=== PATIENT | male | born 1995 | race Caucasian/White ===

== ENCOUNTER 2016-11-28 12:31 | Emergency (ER) ==
[2016-11-28 12:45] VITALS: BP 148/107; TEMP 96.4; BMI 35.8
--- NOTE | 2016-11-28 12:58 | ED.PDOC ---
General ED Provider: Dr. JOANIE SMITH Chief Complaint: Abdominal Pain Stated Complaint: Patient is a 20 year old who c/o Abdominal pain. Diarrhea x 4 , Vomting x 3 over the last 24 hours. with low grade fever rates pain at 7/10, took Imodium Time Seen by Physician: 12:58 Mode of Arrival: Walk-In Information Source: Patient Exam Limitations: No limitations Nursing and Triage Documentation Reviewed and Agree: Yes GI Complaint Exam - Vomiting/Diarrhea Complaint/Exam Onset/Duration: 2 day Episodes of Vomiting over last 24 Hours: 3 Episodes of Diarrhea Over Last 24 Hours: 4 Initial Severity: Moderate Current Severity: Mild Character of Vomiting: Reports: Non-bilious Character of Diarrhea: Reports: Watery Aggravating: Reports: Food Alleviating: Reports: Clear liquids Associated Signs and Symptoms: Denies: Dizziness, Light-headedness, Melena, Hematemesis, Fever, Abdominal pain, Cramping Last Oral Intake: Prior to arrival Last Bowel Movement: toay Non-GI Risk Factors: Reports: None Surgical Obstruction Risk Factors: Reports: None Related Surgical History: Reports: None Abdominal Findings: Present: None Kussmaul Respirations Present: No Differential Diagnoses: Viral Gastroenteritis Review of Systems - Review Of Systems Constitutional: Reports: No symptoms Eyes: Reports: No symptoms Ears, Nose, Mouth, Throat: Reports: No symptoms Respiratory: Reports: No symptoms Cardiac: Reports: No symptoms GI: Reports: Abdominal pain, Diarrhea, Nausea, Vomiting : Reports: No symptoms Musculoskeletal: Reports: No symptoms Skin: Reports: No symptoms Neurological: Reports: No symptoms Endocrine: Reports: No symptoms Hematologic/Lymphatic: Reports: No symptoms All Other Systems: Reviewed and Negative Past Medical History - Past Medical History Previously Healthy: Yes Endocrine: Reports: None Cardiovascular: Reports: None Respiratory: Reports: None Hematological: Reports: None Gastrointestinal: Reports: None Genitourinary: Reports: None Neuro/Psych: Reports: None Musculoskeletal: Reports: None Cancer: Reports: None - Surgical History General Surgical History: Reports: Unknown - Family History Family History: Reports: Unknown - Social History Smoking Status: Current every day smoker, Light tobacco smoker Hx Substance Use: No Alcohol Screening: None - Immunizations Tetanus Shot up to Date: Yes Physical Exam - Physical Exam Appearance: Ill-appearing, Obese Ill-appearing: Mild Neck: Supple Respiratory: Airway patent, Breath sounds clear, Breath sounds equal, Respirations nonlabored Cardiovascular: RRR, Pulses normal, No rub, No murmur GI/: Soft, Tender Musculoskeletal: Normal strength, ROM intact, No edema, No calf tenderness Skin: Warm, Dry, Normal color Neurological: Sensation intact, Motor intact, Reflexes intact, Cranial nerves intact, Alert, Oriented Psychiatric: Anxious Critical Care Note - Critical Care Note Total Time (mins): 0 Course - Course Vital Signs: Temp Pulse Resp BP Pulse Ox 11/28/16 12:34 96.4 F L 76 16 148/107 H 96 Departure - Departure Time of Disposition: 13:39 Disposition: AMA Discharge Problem: Gastroenteritis Condition: Stable Pt referred to PMD for follow-up: No (left AMA ) Allergies/Adverse Reactions: Allergies venom-wasp [Wasp Venom] Allergy (Severe, Verified 11/28/16 12:43) swelling Pt notified to get medical alert necklace. ER doctor told pt to get epi pen Penicillins Adverse Reaction (Verified 11/28/16 12:43) Home Medications: Ambulatory Orders 1 [No Reported Medications] 09/22/15
== END 2016-11-28 13:39 | disposition left against medical advice (07) ==
LOC: ED 12:31
DX: K52.9 Noninfective gastroenteritis and colitis, unspecified (principal); F17.210 Nicotine dependence, cigarettes, uncomplicated
CPT/HCPCS: 99282

== ENCOUNTER 2017-01-03 03:05 | Emergency (ER) ==
[2017-01-03 03:12] VITALS: BP 163/95; TEMP 98.8; BMI 34.7
--- NOTE | 2017-01-03 03:29 | ED.PDOC ---
General ED Provider: Dr. FREDDY CAMARGO-ER Chief Complaint: Tooth Problem Stated Complaint: my tooth really hurts Time Seen by Physician: 03:10 Mode of Arrival: Walk-In Information Source: Patient Exam Limitations: No limitations Nursing and Triage Documentation Reviewed and Agree: Yes EENT Complaint Exam - Dental/Oral Complaint/Exam Mechanism of Injury: No known trauma Onset/Duration: 2 days Symptoms Are: Still present Timing: Constant Initial Severity: Mild Current Severity: Moderate Location: right lower premolar Character: Reports: Dull, Aching, Throbbing Aggravating: Reports: Chewing Alleviating: Reports: None Associated Signs and Symptoms: Denies: Swelling, Discharge, Fever, Foul odor, Foul taste in mouth Tooth Findings: Present: Gross decay, Gross caries Facial Swelling Present: No Bleeding Present: No Oropharynx Findings: Absent: Clots, Active bleeding Septal Hematoma: No Foreign Body Present: No Dysphagia Present: No Drooling Present: No Asymmetrical Tonsillar Swelling Present: No Uvula Midline: Yes Sahkira-tonsillar Fluctuence: No Trismus Present: No Palatal Petechiae Present: No Scarlatinaform Rash Present: No Differential Diagnoses: Dental Abcess, Dental Caries Review of Systems - Review Of Systems Constitutional: Reports: No symptoms Eyes: Reports: No symptoms Ears, Nose, Mouth, Throat: Reports: Mouth pain Respiratory: Reports: No symptoms Cardiac: Reports: No symptoms GI: Reports: No symptoms : Reports: No symptoms Musculoskeletal: Reports: No symptoms Skin: Reports: No symptoms Neurological: Reports: No symptoms Endocrine: Reports: No symptoms Hematologic/Lymphatic: Reports: No symptoms All Other Systems: Reviewed and Negative Past Medical History - Past Medical History Previously Healthy: Yes Endocrine: Reports: None Cardiovascular: Reports: None Respiratory: Reports: None Hematological: Reports: None Gastrointestinal: Reports: None Genitourinary: Reports: None Neuro/Psych: Reports: None Musculoskeletal: Reports: None Cancer: Reports: None - Surgical History General Surgical History: Reports: Unknown - Family History Family History: Reports: Unknown - Social History Smoking Status: Current every day smoker, Heavy tobacco smoker Hx Substance Use: No Alcohol Screening: Occasionally Lives: With family - Immunizations Tetanus Shot up to Date: Yes Physical Exam - Physical Exam Appearance: Well-appearing, No pain distress, Well-nourished Pain Distress: Mild Eyes: BRITTANY, EOMI, Conjunctiva clear ENT: Ears normal, Nose normal, Oropharynx normal (noted dental caries right lower premolar) Neck: Supple Respiratory: Airway patent, Breath sounds clear, Breath sounds equal, Respirations nonlabored Cardiovascular: RRR, Pulses normal, No rub, No murmur GI/: Soft Musculoskeletal: Normal strength, ROM intact, No edema, No calf tenderness Skin: Warm, Dry, Normal color Neurological: Sensation intact Psychiatric: Affect appropriate Critical Care Note - Critical Care Note Total Time (mins): 0 Course - Course Vital Signs: Temp Pulse Resp BP Pulse Ox 01/03/17 03:06 98.8 F 61 20 163/95 H 98 Departure - Departure Time of Disposition: 03:29 Disposition: HOME SELF-CARE Discharge Problem: Toothache Instructions: Dental Caries (ED) Condition: Good Pt referred to PMD for follow-up: Yes Additional Instructions: clindamycin 150mg tid x 7 danorco 7.5mg q 4hrs prn pain #12--f/u dentist kori Allergies/Adverse Reactions: Allergies venom-wasp [Wasp Venom] Allergy (Severe, Verified 01/03/17 03:12) swelling Pt notified to get medical alert necklace. ER doctor told pt to get epi pen Penicillins Adverse Reaction (Verified 01/03/17 03:12) Home Medications: Ambulatory Orders 1 [No Reported Medications] 09/22/15 Disposition Discussed With: Patient, Family
[2017-01-03] MEDS ORDERED: CLEOCIN PO STA (03:30)
[2017-01-03] MEDS ORDERED: NORCO 7.5-325 PO STA (03:31)
== END 2017-01-03 04:04 | disposition home or self-care (01) ==
LOC: ED 03:05
DX: K08.89 Other specified disorders of teeth and supporting structures (principal); K02.7 Dental root caries; F17.210 Nicotine dependence, cigarettes, uncomplicated
CPT/HCPCS: 99282

== ENCOUNTER 2018-01-19 15:54 | Outpatient (CLI) | END 2018-01-19 15:55 | disposition home or self-care (01) | LOC: CAR 15:54 | PROVIDERS: ATTEND Family Medicine | DX: R40.0 Somnolence (principal) ==

== ENCOUNTER 2018-02-15 03:06 | Emergency (ER) ==
[2018-02-15 03:14] VITALS: BP 149/81; TEMP 98.7; BMI 39.4
[2018-02-15] MEDS ORDERED: LEVAQUIN 500 MG in PREMIX 100 ML D5W 1 BAG IV STA (03:15)
[2018-02-15] MEDS ORDERED: DUONEB NEB STA (03:16)
[2018-02-15] MEDS ORDERED: XOPENEX 1.25 MG NEB STA (03:16)
[2018-02-15] MEDS ORDERED: SOLU-MEDROL 125 MG IVP STA (03:17)
--- NOTE | 2018-02-15 03:20 | ED.PDOC ---
General ED Provider: Dr. FREDDY CAMARGO-ER Chief Complaint: Cough Stated Complaint: gerardo got nasal congestion and cough and wheezing Time Seen by Physician: 03:19 Mode of Arrival: Walk-In Information Source: Patient Exam Limitations: No limitations Nursing and Triage Documentation Reviewed and Agree: Yes Reviewed sepsis parameters & appropriate labs ordered?: Yes System Inflammatory Response Syndrome: Not Applicable Sepsis Protocol: For patient's 13 years and over: Temp is 96.8 and below OR 101 and greater Pulse >90 BPM Resp >20/minute Acutely Altered Mental Status Are patient's symptoms suggestive of a new infection, such as: -Pneumonia -Skin, Soft Tissue -Endocarditis -UTI -Bone, Joint Infection -Implantable Device -Acute Abdominal Infection -Wound Infection -Meningitis -Blood Stream Catheter Infection -Unknown Respiratory Complaint Exam - Respiratory Complaint/Exam Onset/Duration: 2 weeks Symptoms Are: Still present Timing: Constant Initial Severity: Mild Current Severity: Moderate Character: Reports: Productive cough Aggravating: Reports: URI Alleviating: Reports: Spontaneous resolution Associated Signs and Symptoms: Reports: Wheezing, URI, Nasal congestion. Denies : Rapid breathing, Dyspnea, Fever, Chills, Chest pain, Pleuritic chest pain, Hemoptysis, Dizziness, Calf pain, Calf swelling, Edema, Hoarseness, Sinus discomfort, Vomiting, Weight loss, Increased thirst, Increased appetite Related History: Reports: Similar episode History of Healthcare-Acquired Pneumonia: No Related Surgical History: Reports: None Pulmonary Embolism Risk Factors: None Status Asthmaticus Risk Factors: Reports: None Home Oxygen Use: No Recent Stress Test: No Recent Echo/LV Function: No Current Antibiotic Use: No Current Asthma Medication Use: No Respiratory Distress: None Inadequate Respiratory Effort: No Dysphagia Present: No Stridor Present: No JVD Present: No Accessory Muscle Use: No Retractions: Not Present Diminished Breath Sounds: No Sinus Tenderness: Frontal, Maxillary Grunting Respirations: No Kussmaul Respirations: No Differential Diagnoses: Bronchitis, Sinusitis Review of Systems - Review Of Systems Constitutional: Reports: Fever Eyes: Reports: No symptoms Ears, Nose, Mouth, Throat: Reports: Nose discharge Respiratory: Reports: Cough, Wheezing Cardiac: Reports: No symptoms GI: Reports: No symptoms : Reports: No symptoms Musculoskeletal: Reports: No symptoms Skin: Reports: No symptoms Neurological: Reports: No symptoms Endocrine: Reports: No symptoms Hematologic/Lymphatic: Reports: No symptoms All Other Systems: Reviewed and Negative Past Medical History - Past Medical History Previously Healthy: Yes Endocrine: Reports: None Cardiovascular: Reports: None Respiratory: Reports: None Hematological: Reports: None Gastrointestinal: Reports: None Genitourinary: Reports: None Neuro/Psych: Reports: None Musculoskeletal: Reports: None Cancer: Reports: None - Surgical History General Surgical History: Reports: Unknown - Family History Family History: Reports: Unknown - Social History Smoking Status: Current every day smoker, Heavy tobacco smoker Hx Substance Use: No Alcohol Screening: Occasionally Lives: With family - Immunizations Tetanus Shot up to Date: Yes Physical Exam - Physical Exam Appearance: Well-appearing, No pain distress, Well-nourished Eyes: BRITTANY, EOMI, Conjunctiva clear ENT: Rhinorrhea Neck: Supple Respiratory: Rhonchi, Wheezes Cardiovascular: RRR, Pulses normal, No rub, No murmur GI/: Soft, Nontender, No masses, Bowel sounds normal, No Organomegaly Musculoskeletal: Normal strength, ROM intact, No edema, No calf tenderness Skin: Warm Neurological: Sensation intact Psychiatric: Affect appropriate, Mood appropriate Interpretation - Radiology Interpretation Radiology Interpretation By: Radiologist Radiology Results: Negative Exam Interpreted: CXR Critical Care Note - Critical Care Note Total Time (mins): 0 Course - Course Orders, Labs, Meds: Orders Category Date Time Status NEBULIZER TREATMENT Stat CARDIO 02/15/18 03:16 Completed ED IV/MEDIPORT/POWERPORT .ONCE EMERGENCY 02/15/18 03:15 Active 0.9 % Sodium Chloride [Saline Flush] MEDS 02/15/18 03:15 Ordered 1 syr IVF PRN PRN Ipratropium/Albuterol Neb [Duoneb] MEDS 02/15/18 03:16 Discontinued 1 vial NEB ONCE STA Levalbuterol HCl [Xopenex 1.25 mg] MEDS 02/15/18 03:16 Discontinued 1 vial NEB ONCE STA Levofloxacin/D5w [Levaquin] 100 ml MEDS 02/15/18 03:22 Discontinued IV .STK-MED Levofloxacin/D5w [Levaquin] 500 mg MEDS 02/15/18 03:15 Discontinued Premix 100 ml D5w 1 bag IV ONCE Methylprednisolone Sod Succ/Pf [Solu-Medrol 125 mg] MEDS 02/15/18 03:17 Discontinued 125 mg IVP ONCE STA CXR [CHEST, 2 VIEWS PA & LAT] Stat RADS 02/15/18 03:17 Completed Medications Generic Name Dose Route Start Last Admin Trade Name Freq PRN Reason Stop Dose Admin Sodium Chloride 1 syr 02/15/18 03:15 02/15/18 03:29 Saline Flush IVF 1 syr PRN PRN Administration To flush IV Discontinued Medications Generic Name Dose Route Start Last Admin Trade Name Freq PRN Reason Stop Dose Admin Albuterol/Ipratropium 1 vial 02/15/18 03:16 02/15/18 03:35 Duoneb NEB 02/15/18 03:17 1 vial ONCE STA Administration Levofloxacin/Dextrose 500 mg/ 100 mls @ 100 mls/hr 02/15/18 03:15 02/15/18 03 :35 Dextrose IV 02/15/18 04:14 100 mls/hr ONCE STA Administration Levalbuterol HCl 1 vial 02/15/18 03:16 02/15/18 03:25 Xopenex 1.25 Mg NEB 02/15/18 03:17 1 vial ONCE STA Administration Methylprednisolone Sodium Succinate 125 mg 02/15/18 03:17 02/15/18 03:29 Solu-Medrol 125 Mg IVP 02/15/18 03:18 125 mg ONCE STA Administration Vital Signs: Temp Pulse Resp BP Pulse Ox 02/15/18 03:07 98.7 F 88 24 149/81 H 93 L Departure - Departure Time of Disposition: 05:00 Disposition: HOME SELF-CARE Discharge Problem: Bronchitis Instructions: Acute Bronchitis (ED) Condition: Good Pt referred to PMD for follow-up: Yes IPMP verified?: No Additional Instructions: biaxin 500mg bid x 10 days--medrol dose pack--tessalon perles 200mg tid prn cough 30--proventil inahler 2 puffs qid--f/u with pcp+ Allergies/Adverse Reactions: Allergies venom-wasp [Wasp Venom] Allergy (Severe, Verified 02/15/18 03:12) swelling Pt notified to get medical alert necklace. ER doctor told pt to get epi pen latex Allergy (Verified 02/15/18 03:12) Rash and Swelling Penicillins Adverse Reaction (Verified 02/15/18 03:12) Home Medications: Ambulatory Orders 1 [No Reported Medications] 09/22/15 Disposition Discussed With: Patient, Family
[2018-02-15] MEDS ORDERED: LEVAQUIN 100 ML IV ONE (03:22)
--- NOTE | 2018-02-15 04:34 | DI ---
EXAM: Two-view chest HISTORY: Cough COMPARISON: Two-view chest 09/18/2010 FINDINGS: The cardiomediastinal silhouette is normal.. There is bilateral peribronchial thickening suggestive of tracheobronchitis. There is no evidence of infiltrate or effusion. No osseous abnormal ities are identified. IMPRESSION: Findings suggestive tracheobronchitis without infiltrate or effusion
== END 2018-02-15 05:00 | disposition home or self-care (01) ==
LOC: ED 03:06
DX: J20.9 Acute bronchitis, unspecified (principal); F17.210 Nicotine dependence, cigarettes, uncomplicated
CPT/HCPCS: 94640; 96365; 96375; 99283